=== PATIENT | male | born 1985 | race Two or more races ===

== ENCOUNTER 2020-02-26 12:29 | Emergency (ER) | payer OTHER ==
[~2020-02-26] VITALS: Ht 177.8 cm; Wt 74.8 kg
[~2020-02-26 12:29] MED LIST: OMEPRAZOLE20 M1 PO; ZANTAC150 MG PO
== END 2020-02-26 15:51 | disposition home or self-care (01) ==
LOC: ER 12:29
DX: B34.9 Viral infection, unspecified (principal)

== ENCOUNTER → 2021-02-01 | Emergency (ER) | payer OTHER ==
[~2021-02-01] VITALS: Ht 180.3 cm; Wt 72.1 kg
[~2021-02-01] MED LIST changes: +PEPCID AC20 MG PO; +PREVACID30 MG PO; +VISTARIL50 MG PO
== END | disposition home or self-care (01) ==
LOC: ER 11:26
DX: K21.9 Gastro-esophageal reflux disease without esophagitis (principal); K29.70 Gastritis, unspecified, without bleeding

== ENCOUNTER 2021-02-10 18:40 | Emergency (ER) | payer OTHER ==
[~2021-02-10] VITALS: Ht 180.3 cm; Wt 72.6 kg
== END 2021-02-10 21:51 | disposition home or self-care (01) ==
LOC: ER 18:40
DX: K29.20 Alcoholic gastritis without bleeding (principal)

== ENCOUNTER 2022-01-31 13:59 | Emergency (ER) | payer OTHER ==
[~2022-01-31] VITALS: Ht 177.8 cm; Wt 68.0 kg
[2022-01-31] MEDS ORDERED: KETO10TA2 PO (15:43)
[2022-01-31] MEDS ORDERED: PEPCID40 MG PO (15:45)
== END 2022-01-31 16:37 | disposition home or self-care (01) ==
LOC: ER 13:59
DX: S62.611A Displaced fracture of proximal phalanx of left index finger, initial encounter for closed fracture (principal); Y04.0XXA Assault by unarmed brawl or fight, initial encounter; Y92.89 Other specified places as the place of occurrence of the external cause; Z88.0 Allergy status to penicillin